=== PATIENT | female | born 1935 | race African-American/Black ===

== ENCOUNTER 2017-08-12 13:38 | Inpatient (IN) | payer MEDICARE ==
[~2017-08-12] VITALS: Ht 157.5 cm; Wt 92.5 kg
[~2017-08-12 13:38] MED LIST: AMLO1CAP PO
[2017-08-12] MEDS ORDERED: ASPIRIN 81 MG TAB.CHEW PO ONE (14:00)
[2017-08-12] MEDS ORDERED: NITROGLYCERIN PACKET 1 GM PACKET TD ONE (14:00)
[2017-08-12 14:17] LABS: BASOPHILS # (AUTO) 0.1 /CMM (0.0-0.2); BASOPHILS % (AUTO) 0.9 % (0.0-2.0); EOSINOPHILS # (AUTO) 0.3 /CMM (0.0-0.7); EOSINOPHILS % (AUTO) 3.5 % (0.0-6.0); HEMATOCRIT 35 % (33-45); HEMOGLOBIN 10.8 g/dL (11.5-14.8); LYMPHOCYTES # (AUTO) 0.8 /CMM (0.8-4.8); LYMPHOCYTES % (AUTO) 7.9 % (20.0-44.0); MEAN CORPUSCULAR HEMOGLOBIN 29 PG (26.0-33.0); MEAN CORPUSCULAR HGB CONC 31 g/dl (31.0-36.0); MEAN CORPUSCULAR VOLUME 93 fL (82-100); MONOCYTES # (AUTO) 0.5 /CMM (0.1-1.30); MONOCYTES % (AUTO) 4.7 % (2.0-12.0); NEUTROPHILS # (AUTO) 7.9 /CMM (1.8-8.9); PLATELET COUNT (AUTO) 297 /CMM (150-450); RDW COEFFICIENT OF VARIATION 17.7 (11.5-15.0); RED BLOOD CELL COUNT(AUTO) 3.72 MIL/uL (4.0-5.2); WHITE BLOOD COUNT (AUTO) 9.6 K/uL (4.3-11.0)
[2017-08-12 14:25] LABS: CALCIUM, SERUM 9.4 mg/dL (8.5-10.1); CARBON DIOXIDE 33 mmol/L (21-32); CHLORIDE 95 mmol/L (98-107); CREATININE 5.6 mg/dL (0.6-1.3); GLUCOSE 113 mg/dL (74-106); POTASSIUM 4.6 mmol/L (3.5-5.1); SODIUM SERUM 134 mmol/L (136-145); UREA NITROGEN, BLOOD 26 mg/dL (7-18)
[2017-08-12 14:29] LABS: INR 1.03 (0.87-1.13); PROTHROMBIN TIME 10.7 SECS (9.5-12.7)
[2017-08-12 14:31] LABS: ALANINE AMINOTRANSFERASE 15 U/L (12-78); ALBUMIN 3.4 g/dL (3.4-5.0); ALKALINE PHOSPHATASE 106 U/L (46-116); ASPARTATE AMINOTRANSFERASE 38 U/L (15-37); BILIRUBIN,DIRECT 0.1 mg/dL (0.0-0.2); BILIRUBIN,TOTAL 0.8 mg/dL (0.2-1.0); TOTAL PROTEIN, SERUM 8.7 g/dL (6.4-8.2)
[2017-08-12 14:33] LABS: TROPONIN I < 0.017 ng/mL (0.00-0.056)
[2017-08-12] MEDS ORDERED: HYDR-4077 PO (14:52)
[2017-08-12] MEDS ORDERED: MULT-213 PO (14:52)
[2017-08-12] MEDS ORDERED: ONDA4TAB5 PO (14:52)
[2017-08-12] MEDS ORDERED: MAGN400O6 PO (14:52)
[2017-08-12] MEDS ORDERED: NA P133E RC (14:52)
[2017-08-12] MEDS ORDERED: CINA60TA PO (14:52)
[2017-08-12] MEDS ORDERED: TRAM50TA2 PO (14:52)
[2017-08-12] MEDS ORDERED: LACT1TAB20 PO (14:52)
[2017-08-12] MEDS ORDERED: ACET-868 PO (14:52)
[2017-08-12] MEDS ORDERED: SEVE800T8 PO (14:52)
[2017-08-12] MEDS ORDERED: DILT60TA3 PO (14:52)
[2017-08-12] MEDS ORDERED: PANT40TA2 PO (14:52)
[2017-08-12] MEDS ORDERED: METO-358 PO (14:52)
[2017-08-12] MEDS ORDERED: BUDE10.2 INH (14:52)
[2017-08-12] MEDS ORDERED: LACT10SO PO (14:52)
[2017-08-12] MEDS ORDERED: FOLI1TAB16 PO (14:52)
[2017-08-12] MEDS ORDERED: FAMO-131 PO (14:52)
[2017-08-12] MEDS ORDERED: FERR-58 PO (14:52)
[2017-08-12] MEDS ORDERED: BISA10SU8 RC (14:52)
[2017-08-12] MEDS ORDERED: ACETAMINOPHEN ES 500 MG TABLET ONE (15:28)
[2017-08-12] MEDS ORDERED: ACETAMINOPHEN ES 500 MG TABLET PO ONE (15:30)
[2017-08-12 16:00] VITALS: BP 132/89
[2017-08-12] MEDS ORDERED: MAG HYDROX/AL HYDROX/SIMETH 30 ML UDC PO PRN (17:00)
[2017-08-12] MEDS ORDERED: HYDROCODONE/APAP 5/325MG 1 EACH TABLET PO PRN (17:00)
[2017-08-12] MEDS ORDERED: Z GUARD REMEDY 2 OZ OINT TP PRN ×2 (17:00)
[2017-08-12] MEDS ORDERED: MAGNESIUM HYDROXIDE 30 ML UDC PO PRN ×2 (17:00→18:00)
[2017-08-12] MEDS ORDERED: ZOLPIDEM TARTRATE 5 MG TABLET PO PRN (17:00)
[2017-08-12] MEDS ORDERED: ENOXAPARIN SODIUM 40 MG/0.4 ML DISP.SYRIN SQ SCH (17:00)
[2017-08-12] MEDS ORDERED: ACETAMINOPHEN 325 MG TABLET PO PRN (17:00)
[2017-08-12] MEDS ORDERED: NITROGLYCERIN 0.4 MG/TAB BOTTLE SL PRN (17:00)
[2017-08-12] MEDS ORDERED: NA PHOS,M-B/NA PHOS,DI-BA 1 EA ENEMA RC PRN (18:00)
[2017-08-12] MEDS ORDERED: BISACODYL SUPP (10 MG) 10 MG/SUPP.RECT SUPP.RECT RC PRN (18:00)
[2017-08-12] MEDS ORDERED: TRAMADOL HCL 50 MG TABLET PO PRN (18:00)
[2017-08-12] MEDS: SEVELAMER CARBONATE 800 MG TABLET PO SCH (18:09)
[2017-08-12] MEDS: HYDROCODONE/APAP 10/325MG 1 EA TABLET PO PRN ×2 (18:09→22:05)
[2017-08-12] MEDS: DILTIAZEM HCL 30 MG TABLET PO SCH (19:04)
[2017-08-12 20:00] VITALS: BP 129/72
[2017-08-12] MEDS: METOPROLOL TARTRATE 50 MG TABLET PO SCH (21:58)
[2017-08-12] MEDS: HEPARIN SODIUM, PORCINE 5000 UNITS/1 ML VIAL SQ SCH (21:59)
[2017-08-13] VITALS: BP 124/77
[2017-08-13] MEDS: DILTIAZEM HCL 30 MG TABLET PO SCH ×5 (01:06→23:43)
[2017-08-13 04:00] VITALS: BP 156/64
[2017-08-13 07:07] LABS: EOSINOPHILS % (AUTO) 0.1 % (0.0-6.0); HEMATOCRIT 35 % (33-45); HEMOGLOBIN 10.9 g/dL (11.5-14.8); LYMPHOCYTES # (AUTO) 0.8 /CMM (0.8-4.8); LYMPHOCYTES % (AUTO) 5.4 % (20.0-44.0); MEAN CORPUSCULAR HEMOGLOBIN 30 PG (26.0-33.0); MEAN CORPUSCULAR HGB CONC 31 g/dl (31.0-36.0); MEAN CORPUSCULAR VOLUME 94 fL (82-100); MONOCYTES # (AUTO) 0.5 /CMM (0.1-1.30); MONOCYTES % (AUTO) 3.3 % (2.0-12.0); NEUTROPHILS # (AUTO) 13.7 /CMM (1.8-8.9); NEUTROPHILS % (AUTO) 91.2 % (43.0-81.0); PLATELET COUNT (AUTO) 356 /CMM (150-450); RED BLOOD CELL COUNT(AUTO) 3.71 MIL/uL (4.0-5.2)
[2017-08-13 08:00] VITALS: BP 173/103
[2017-08-13] MEDS: ACETAMINOPHEN 325 MG TABLET PO PRN ×2 (08:21→16:48)
[2017-08-13] MEDS: FLUTICASONE/VILANTEROL 1 EACH BLST.W.DEV IH SCH ×2 (08:22→16:21)
[2017-08-13] MEDS: FOLIC ACID 1 MG TABLET PO SCH (08:26)
[2017-08-13] MEDS: FAMOTIDINE (20 MG) 20 MG TABLET PO SCH (08:26)
[2017-08-13] MEDS: ASPIRIN 325 MG TABLET PO SCH (08:27)
[2017-08-13] MEDS: PANTOPRAZOLE 40 MG TABLET.DR PO SCH (08:27)
[2017-08-13] MEDS: FERROUS SULFATE (325 MG) 325 MG/TAB TABLET PO SCH (08:28)
[2017-08-13] MEDS: CINACALCET HCL 30 MG TABLET PO SCH (08:29)
[2017-08-13] MEDS: SEVELAMER CARBONATE 800 MG TABLET PO SCH ×3 (08:30→17:52)
[2017-08-13] MEDS: HEPARIN SODIUM, PORCINE 5000 UNITS/1 ML VIAL SQ SCH ×2 (08:32→22:02)
[2017-08-13] MEDS: ALBUTEROL FS 2.5 MG/3 ML VIAL.NEB NEB PRN ×2 (08:34→16:52)
[2017-08-13] MEDS: IPRATROPIUM NEB FS 0.5 MG/2.5 ML AMPUL.NEB NEB PRN ×2 (08:34→16:52)
[2017-08-13 08:46] LABS: CALCIUM, SERUM 9.8 mg/dL (8.5-10.1); CARBON DIOXIDE 30 mmol/L (21-32); CHLORIDE 97 mmol/L (98-107); CREATININE 6.2 mg/dL (0.6-1.3); GLUCOSE 99 mg/dL (74-106); MAGNESIUM 3.5 mg/dL (1.8-2.4); PHOSPHORUS 4.4 mg/dL (2.5-4.9); SODIUM SERUM 137 mmol/L (136-145); UREA NITROGEN, BLOOD 34 mg/dL (7-18)
[2017-08-13 08:51] LABS: TROPONIN I < 0.017 ng/mL (0.00-0.056)
[2017-08-13] MEDS ORDERED: methylPREDNISolone SOD SUCC 40 MG/ML VIAL IV SCH (09:00)
[2017-08-13] MEDS: METOPROLOL TARTRATE 50 MG TABLET PO SCH ×2 (09:00→22:01)
[2017-08-13] MEDS: hydrALAZINE HCL 50 MG TABLET PO SCH ×2 (09:00→16:24)
[2017-08-13] MEDS ORDERED: MINERAL OIL/PETROLATUM,WHITE 120 GM JAR TP PRN (09:30)
[2017-08-13 09:41] LABS: NEUTROPHILS % (MANUAL) 87 (42-76)
[2017-08-13 09:42] LABS: BAND % (MANUAL) 4 % (0.0-5.0); LYMPHOCYTES % (MANUAL) 5 % (16-48); MONOCYTES % (MANUAL) 4 % (0-11.0)
[2017-08-13] MEDS: ATORVASTATIN 10 MG TABLET PO SCH (10:52)
[2017-08-13 12:00] VITALS: BP 119/73
[2017-08-13 12:37] LABS: CHOLESTEROL 166 mg/dL (<200); HDL CHOLESTEROL 105 mg/dL (40-60); LDL 46 mg/dL (0-99); TRIGLYCERIDES 70 mg/dL (30-150)
[2017-08-13] MEDS: ONDANSETRON HCL/PF 4 MG/2 ML VIAL IVP PRN (12:45)
[2017-08-13 13:00] LABS: THYROID STIMULATING HORMONE 2.072 uIU/mL (0.358-3.74)
[2017-08-13 16:00] VITALS: BP 135/74
[2017-08-13] MEDS: WARFARIN SODIUM 5 MG TABLET PO SCH (16:23)
[2017-08-13 20:00] VITALS: BP 137/68
[2017-08-14] VITALS: BP 130/66
[2017-08-14 04:00] VITALS: BP 116/72
[2017-08-14 08:00] VITALS: BP_SYST 114; BP_SYST 139; BP_DIAS 60; BP_DIAS 90
[2017-08-14] MEDS: FOLIC ACID 1 MG TABLET PO SCH (08:52)
[2017-08-14] MEDS: ATORVASTATIN 10 MG TABLET PO SCH (08:52)
[2017-08-14] MEDS: PANTOPRAZOLE 40 MG TABLET.DR PO SCH (08:52)
[2017-08-14] MEDS: ASPIRIN 325 MG TABLET PO SCH (08:53)
[2017-08-14] MEDS: CINACALCET HCL 30 MG TABLET PO SCH (08:53)
[2017-08-14] MEDS: FAMOTIDINE (20 MG) 20 MG TABLET PO SCH (08:54)
[2017-08-14] MEDS: FERROUS SULFATE (325 MG) 325 MG/TAB TABLET PO SCH (08:54)
[2017-08-14] MEDS: METOPROLOL TARTRATE 50 MG TABLET PO SCH ×2 (08:54→21:11)
[2017-08-14] MEDS: SEVELAMER CARBONATE 800 MG TABLET PO SCH ×3 (08:55→17:04)
[2017-08-14] MEDS: DILTIAZEM HCL 30 MG TABLET PO SCH ×4 (08:55→23:58)
[2017-08-14] MEDS: hydrALAZINE HCL 50 MG TABLET PO SCH ×2 (08:56→17:05)
[2017-08-14] MEDS: methylPREDNISolone SOD SUCC 40 MG/ML VIAL IV SCH (08:56)
[2017-08-14] MEDS: FLUTICASONE/VILANTEROL 1 EACH BLST.W.DEV IH SCH ×2 (08:57→16:59)
[2017-08-14] MEDS: HEPARIN SODIUM, PORCINE 5000 UNITS/1 ML VIAL SQ SCH ×2 (08:59→21:20)
[2017-08-14] MEDS ORDERED: REGADENOSON 0.4 MG/5 ML DISP.SYRIN IVP ONE (09:00)
[2017-08-14] MEDS: ONDANSETRON HCL/PF 4 MG/2 ML VIAL IVP PRN (09:01)
[2017-08-14 10:15] LABS: INR 1.39 (0.87-1.13); PROTHROMBIN TIME 14.5 SECS (9.5-12.7)
[2017-08-14] MEDS: ALBUTEROL FS 2.5 MG/3 ML VIAL.NEB NEB PRN (11:52)
[2017-08-14] MEDS: IPRATROPIUM NEB FS 0.5 MG/2.5 ML AMPUL.NEB NEB PRN (11:52)
[2017-08-14 11:59] LABS: ABG BASE EXCESS 1.4 mmol/L; ABG PCO2 43.9 mmHg (35.0-45.0); ABG PH 7.399 (7.350-7.450); ABG PO2 64.4 mmHg (75.0-100.0); AaDO2 170.3 mmHg; COHb 0.9 % (0.5-1.5); MetHb 0.5 % (0.0-1.5); O2Hb 90.7 % (94.0-97.0); SITE, ABG Right Radial; VENT MODE, BG 3.5lpm n/c
[2017-08-14] MEDS: ALBUTEROL FS 2.5 MG/0.5 ML VIAL.NEB NEB SCH ×3 (15:54→23:47)
[2017-08-14] MEDS: IPRATROPIUM NEB FS 0.5 MG/2.5 ML AMPUL.NEB NEB SCH ×3 (15:54→23:47)
[2017-08-14 16:00] VITALS: BP 130/90
[2017-08-14] MEDS: WARFARIN SODIUM 5 MG TABLET PO SCH (17:22)
[2017-08-14] MEDS: ACETAMINOPHEN 325 MG TABLET PO PRN (21:10)
[2017-08-15] VITALS (16 sets, daily range): BP systolic 58–185; BP diastolic 29–84
[2017-08-15] MEDS: IPRATROPIUM NEB FS 0.5 MG/2.5 ML AMPUL.NEB NEB SCH ×3 (04:15→11:35)
[2017-08-15] MEDS: ALBUTEROL FS 2.5 MG/0.5 ML VIAL.NEB NEB SCH ×3 (04:15→11:36)
[2017-08-15] MEDS: DILTIAZEM HCL 30 MG TABLET PO SCH ×2 (06:35→11:47)
[2017-08-15 06:52] LABS: INR 2.42 (0.87-1.13); PROTHROMBIN TIME 25.4 SECS (9.5-12.7)
[2017-08-15 06:59] LABS: CALCIUM, SERUM 9.8 mg/dL (8.5-10.1); CARBON DIOXIDE 26 mmol/L (21-32); CHLORIDE 95 mmol/L (98-107); CREATININE 6.2 mg/dL (0.6-1.3); MAGNESIUM 3.1 mg/dL (1.8-2.4); PHOSPHORUS 3.2 mg/dL (2.5-4.9); POTASSIUM 5.2 mmol/L (3.5-5.1); SODIUM SERUM 134 mmol/L (136-145); UREA NITROGEN, BLOOD 46 mg/dL (7-18)
[2017-08-15] MEDS ORDERED: DEXTROSE 50%-WATER 50 ML DISP.SYRIN IVP ONE (07:30)
[2017-08-15] MEDS: PANTOPRAZOLE 40 MG TABLET.DR PO SCH (07:30)
[2017-08-15 07:51] LABS: GLUCOSE 28 mg/dL (74-106)
[2017-08-15] MEDS: SEVELAMER CARBONATE 800 MG TABLET PO SCH ×2 (08:00→12:11)
[2017-08-15] MEDS ORDERED: DEXTROSE 50%-WATER 50 ML DISP.SYRIN IV PRN (08:30)
[2017-08-15] MEDS ORDERED: INSULIN REGULAR, HUMAN 100 UNIT/ML 3 ML VIAL SQ PRN ×2 (08:30→09:00)
[2017-08-15 08:38] LABS: HEMATOCRIT 31 % (33-45); HEMOGLOBIN 9.8 g/dL (11.5-14.8); MEAN CORPUSCULAR HEMOGLOBIN 29 PG (26.0-33.0); MEAN CORPUSCULAR HGB CONC 31 g/dl (31.0-36.0); MEAN CORPUSCULAR VOLUME 92 fL (82-100); PLATELET COUNT (AUTO) 160 /CMM (150-450); RDW COEFFICIENT OF VARIATION 18.4 (11.5-15.0); RED BLOOD CELL COUNT(AUTO) 3.42 MIL/uL (4.0-5.2); WHITE BLOOD COUNT (AUTO) 2.4 K/uL (4.3-11.0)
[2017-08-15] MEDS: ASPIRIN 325 MG TABLET PO SCH (09:00)
[2017-08-15] MEDS: CINACALCET HCL 30 MG TABLET PO SCH (09:00)
[2017-08-15] MEDS: FOLIC ACID 1 MG TABLET PO SCH (09:00)
[2017-08-15] MEDS: FLUTICASONE/VILANTEROL 1 EACH BLST.W.DEV IH SCH (09:00)
[2017-08-15] MEDS: METOPROLOL TARTRATE 50 MG TABLET PO SCH (09:00)
[2017-08-15] MEDS: FERROUS SULFATE (325 MG) 325 MG/TAB TABLET PO SCH (09:00)
[2017-08-15] MEDS: ATORVASTATIN 10 MG TABLET PO SCH (09:00)
[2017-08-15] MEDS: FAMOTIDINE (20 MG) 20 MG TABLET PO SCH (09:00)
[2017-08-15] MEDS: hydrALAZINE HCL 50 MG TABLET PO SCH (09:00)
[2017-08-15 09:10] LABS: BAND % (MANUAL) 5 % (0.0-5.0); LYMPHOCYTES % (MANUAL) 20 % (16-48); MONOCYTES % (MANUAL) 15 % (0-11.0); MYELOCYTES % 2 % (0-0); NEUTROPHILS % (MANUAL) 58 (42-76)
[2017-08-15] MEDS: DEXTROSE 50%-WATER 50 ML DISP.SYRIN IV PRN ×2 (09:11→11:08)
[2017-08-15] MEDS: methylPREDNISolone SOD SUCC 40 MG/ML VIAL IV SCH (09:14)
[2017-08-15] MEDS: HEPARIN SODIUM, PORCINE 5000 UNITS/1 ML VIAL SQ SCH (09:41)
[2017-08-15] MEDS ORDERED: ALBUMIN 25% 25 GM in PREMIX 1 EA IV PRN (10:00)
[2017-08-15] MEDS ORDERED: IV NS 0.9% 250 ML IV ONE (10:30)
[2017-08-15] MEDS ORDERED: PROPOFOL 100 ML IV PRN (11:00)
[2017-08-15 11:24] LABS: ABG BASE EXCESS -0.8 mmol/L; ABG OXYGEN SATURATION 84.6 % (92.0-98.5); ABG PCO2 32.9 mmHg (35.0-45.0); ABG PH 7.455 (7.350-7.450); ABG PO2 46.1 mmHg (75.0-100.0); COHb 1.2 % (0.5-1.5); O2Hb 82.7 % (94.0-97.0); SITE, ABG Left Radial; VENT MODE, BG VBG ON N/B
[2017-08-15] MEDS ORDERED: IPRATROPIUM NEB FS 0.5 MG/2.5 ML AMPUL.NEB NEB SCH (11:30)
[2017-08-15] MEDS ORDERED: BLOOD SUGAR DIAGNOSTIC 1 EACH STRIP IN SCH ×2 (12:00)
[2017-08-15] MEDS ORDERED: Sodium Chloride 154 MEQ in IV 10% DEXTROSE 1,000 ML IV PRN ×2 (12:00→13:30)
[2017-08-15] MEDS ORDERED: NOREPINEPHRINE 16 MG in IV D5W 500 ML IV PRN ×2 (12:00→12:30)
[2017-08-15 12:44] LABS: ABG BASE EXCESS -4.8 mmol/L; ABG OXYGEN SATURATION 91.9 % (92.0-98.5); ABG PCO2 31.2 mmHg (35.0-45.0); ABG PH 7.405 (7.350-7.450); ABG PO2 65.1 mmHg (75.0-100.0); AaDO2 328.4 mmHg; COHb 0.8 % (0.5-1.5); MetHb 0.5 % (0.0-1.5); O2Hb 90.7 % (94.0-97.0); PEEP,BG 0 cm H2O; SITE, ABG Right Radial; VENT MODE, BG AC 18 500 60% +0; VT, ABG 500 mL
[2017-08-15] MEDS ORDERED: MUPIROCIN OINT 2% 22 GM TUBE SCH (13:00)
[2017-08-15] MEDS ORDERED: PIPERACILLIN /TAZOBACTAM 2.25 G in IV D5W 50 ML IV SCH (13:00)
[2017-08-15] MEDS ORDERED: FEE PK DOSING 1 MIN EA MC ONE (13:06)
[2017-08-15] MEDS ORDERED: DEXTROSE 50%-WATER 50 ML DISP.SYRIN IV ONE ×2 (13:10→13:38)
[2017-08-15] MEDS ORDERED: VANCOMYCIN 1 GM in IV D5W 250 ML IV ONE (13:30)
[2017-08-15] MEDS ORDERED: IV 10% DEXTROSE 1,000 ML IV PRN (13:30)
[2017-08-15] MEDS ORDERED: HYDROCORTISONE SOD SUCCINATE 100 MG/2 ML VIAL IV SCH (13:30)
[2017-08-15] MEDS ORDERED: CALCIUM CHLORIDE 1,000 MG/10 ML DISP.SYRIN IV ONE (13:38)
[2017-08-15] MEDS ORDERED: SODIUM BICARBONATE SYR 50 MEQ/50 ML DISP.SYRIN IV ONE (13:38)
[2017-08-15] MEDS ORDERED: EPINEPHRINE (1:10,000) SYRINGE 1 MG/10 ML DISP.SYRIN IVP ONE ×3 (13:38→14:52)
[2017-08-15 13:45] LABS: ALANINE AMINOTRANSFERASE 26 U/L (12-78); ALBUMIN 2.4 g/dL (3.4-5.0); ALKALINE PHOSPHATASE 74 U/L (46-116); ASPARTATE AMINOTRANSFERASE 62 U/L (15-37); BILIRUBIN,TOTAL 1.4 mg/dL (0.2-1.0); CALCIUM, SERUM 10.7 mg/dL (8.5-10.1); CARBON DIOXIDE 19 mmol/L (21-32); CHLORIDE 99 mmol/L (98-107); CREATININE 6.9 mg/dL (0.6-1.3); GLUCOSE 207 mg/dL (74-106); SODIUM SERUM 137 mmol/L (136-145); TOTAL PROTEIN, SERUM 5.8 g/dL (6.4-8.2); UREA NITROGEN, BLOOD 51 mg/dL (7-18)
[2017-08-15 13:47] LABS: POTASSIUM 6.2 mmol/L (3.5-5.1)
[2017-08-15] MEDS ORDERED: EPINEPHRINE (1:1000) 1 MG in IV D5W 250 ML IV PRN (14:00)
[2017-08-15 15:00] LABS: MAGNESIUM 3.2 mg/dL (1.8-2.4); PHOSPHORUS 4.5 mg/dL (2.5-4.9)
[2017-08-15] MEDS ORDERED: ALBUTEROL HALF STRENGTH 1.25 MG/3 ML VIAL.NEB NEB SCH (15:30)
[2017-08-15] MEDS ORDERED: WARFARIN SODIUM 1 MG TABLET PO SCH (17:00)
== END 2017-08-15 14:57 | disposition expired | DRG 291 ==
LOC: ER 13:40 → TELE1 15:44 → MEDSG1 08-14 08:18 → ICU 08-15 10:04
PROVIDERS: ADMIT Nurse Practitioner Acute Care; ATTEND Nurse Practitioner Acute Care
PROC: 5A1D70Z Performance of Urinary Filtration, Intermittent, Less than 6 Hours Per Day (ICD-10-PCS; 2017-08-13)
PROC: 0BH18EZ Insertion of Endotracheal Airway into Trachea, Via Natural or Artificial Opening Endoscopic (ICD-10-PCS; principal; 2017-08-15)
PROC: 5A1935Z Respiratory Ventilation, Less than 24 Consecutive Hours (ICD-10-PCS; 2017-08-15)
PROC: 5A12012 Performance of Cardiac Output, Single, Manual (ICD-10-PCS; 2017-08-15)
PROC: 05H533Z Insertion of Infusion Device into Right Subclavian Vein, Percutaneous Approach (ICD-10-PCS; 2017-08-15)
PROC: B546ZZA Ultrasonography of Right Subclavian Vein, Guidance (ICD-10-PCS; 2017-08-15)
DX: I13.2 Hypertensive heart and chronic kidney disease with heart failure and with stage 5 chronic kidney disease, or end stage renal disease (principal); N18.6 End stage renal disease; J69.0 Pneumonitis due to inhalation of food and vomit; G93.1 Anoxic brain damage, not elsewhere classified; D61.818 Other pancytopenia; J96.01 Acute respiratory failure with hypoxia; J96.02 Acute respiratory failure with hypercapnia; D68.59 Other primary thrombophilia; E87.1 Hypo-osmolality and hyponatremia; R53.2 Functional quadriplegia; I50.33 Acute on chronic diastolic (congestive) heart failure; D68.9 Coagulation defect, unspecified; J44.1 Chronic obstructive pulmonary disease with (acute) exacerbation; E66.2 Morbid (severe) obesity with alveolar hypoventilation; I48.91 Unspecified atrial fibrillation; D63.8 Anemia in other chronic diseases classified elsewhere; E16.2 Hypoglycemia, unspecified; E66.9 Obesity, unspecified; F17.200 Nicotine dependence, unspecified, uncomplicated; Z86.73 Personal history of transient ischemic attack (TIA), and cerebral infarction without residual deficits; Z66 Do not resuscitate; Z99.2 Dependence on renal dialysis; Z68.37 Body mass index [BMI] 37.0-37.9, adult; S30.810A Abrasion of lower back and pelvis, initial encounter; X58.XXXA Exposure to other specified factors, initial encounter; Y93.9 Activity, unspecified; Y92.009 Unspecified place in unspecified non-institutional (private) residence as the place of occurrence of the external cause; I35.0 Nonrheumatic aortic (valve) stenosis; Z99.81 Dependence on supplemental oxygen; I25.119 Atherosclerotic heart disease of native coronary artery with unspecified angina pectoris; Z51.5 Encounter for palliative care
CPT/HCPCS: 36415; 36569; 36600; 71010-TC; 80048-TC; 80053-TC; 80061-TC; 80076-TC; 82803-TC; 82962-TC; 83605-TC; 83735-TC; 84100-TC; 84443-TC; 84484-TC; 85025-TC; 85610-TC; 85730-TC; 87040-TC; 87081-TC; 87186-TC; 90935-TC; 92950-TC; 93307-TC; 94002-TC; A4216; A4606; A6402; A9502; J0171; J1644; J1815; J2405; J2543; J2785; J2920; J3370; J3490; J7050; J7060; P9047; Z7610